=== PATIENT | female | born 1945 | race Caucasian/White ===

== ENCOUNTER → 2018-01-04 | Outpatient (CLI) | payer OTHER | LOC: RAD 13:27 | DX: Z12.31 Encounter for screening mammogram for malignant neoplasm of breast (principal) ==

== ENCOUNTER → 2019-01-17 | Outpatient (CLI) | payer OTHER | LOC: RAD 01:13 | DX: Z12.31 Encounter for screening mammogram for malignant neoplasm of breast (principal) ==

== ENCOUNTER → 2020-02-17 | Outpatient (CLI) | payer OTHER | LOC: BC 10:44 | DX: Z12.31 Encounter for screening mammogram for malignant neoplasm of breast (principal) ==